=== PATIENT | male | born 1965 | race Caucasian/White ===

== ENCOUNTER 2016-11-09 01:15 | Emergency (ER) | payer OTHER ==
[~2016-11-09] VITALS: Ht 170.2 cm; Wt 90.7 kg
[2016-11-09 01:19] VITALS: BP 150/94
--- NOTE | 2016-11-09 01:35 | NUR ---
PT TAKEN TO BED 5
--- NOTE | 2016-11-09 01:39 | NUR ---
PT BIB FAMILY C/O BILAT RIB PAIN S/P DIFF OF BREATHING, COUGH FOR 2 WEEKS. PT DENIES N/V/D; SKIN IS INTACT, PINK/WARM/DRY; AAOX4, PERRL, WITH EVEN AND STEADY GAIT; LUNGS BL MILD CONGESTION, BREATHING LABORED; HR EVEN AND REGULAR, BL PERIPHERAL PULSES PRESENT; BS ACTIVE X4, NO TENDERNESS TO PALPATION. PT DENIES ANY FEVER, CP, SOB, OR COUGH AT THIS TIME; PT STATES 5/10 PAIN AT THIS TIME; VSS; PATIENT POSITIONED FOR COMFORT; HOB ELEVATED; BEDRAILS UP X2; BED DOWN.
--- NOTE | 2016-11-09 01:42 | NUR ---
Dr. Bernard evaluating patient at bedside.
--- NOTE | 2016-11-09 02:00 | NUR ---
X-Ray at bedside.
[2016-11-09 02:08] VITALS: BP 135/91
--- NOTE | 2016-11-09 02:10 | NUR ---
Patient discharged with v/s stable. Written and verbal after care instructions given and explained. Patient alert, oriented and verbalized understanding of instructions. Ambulatory with steady gait. All questions addressed prior to discharge. ID band removed. Patient advised to follow up with PMD. Rx of PERDNISONE 10MG DAILY, AUGMENTIN 875 BID, CODEINE/PROMETHAZINE 10MG-6.25MG/5ML Q6H/PRN given. Patient educated on indication of medication including possible reaction and side effects. Opportunity to ask questions provided and answered. ALL INFO AND DISCAHRGE GIVEN TO PT BY ER MD DR [email or web address]
== END 2016-11-09 02:10 | disposition home or self-care (01) ==
LOC: MED 01:15
DX: J20.9 Acute bronchitis, unspecified (principal)
CPT/HCPCS: 71010; 99283; Q0092